=== PATIENT | female | born 1975 | race Caucasian/White ===

== ENCOUNTER 2016-12-14 14:42 | Emergency (ER) | payer OTHER ==
[~2016-12-14] VITALS: Ht 157.5 cm; Wt 55.8 kg
[2016-12-14] MEDS ORDERED: CITALOPRAM HBR20 MG PO (15:29)
--- NOTE | 2016-12-14 15:47 | ED ANIMAL BITE/WOUND CHECK ---
History of Present Illness General Chief Complaint: General Adult Stated Complaint: NEEDLE STICK Source: patient, old records Exam Limitations: no limitations Vital Signs & Intake/Output Vital Signs & Intake/Output ED Intake and Output 12/15 0000 12/14 1200 Intake Total 0 Output Total Balance 0 Intake, Oral 0 Patient 123 lb Weight Allergies Coded Allergies: No Known Allergies (09/18/15) Reconcile Medications Citalopram Hydrobromide (Citalopram HBr) 20 MG TABLET 1 TAB PO DAILY MENTAL HEALTH (Reported) Triage Note: PT STATES THAT SHE HAD JUST FINISHED GIVING A SHOT OF HEPARIN AND WENT TO [facility] STUCK HER L INDEX FINGER Triage Nurses Notes Reviewed? yes Onset: Abrupt Duration: hour(s): (1), constant Timing: single episode today Injury Environment: work Severity: mild Severity Numbers: 1 No Modifying Factors: none Associated Symptoms: DENIES : No Patient currently breastfeeds: No HPI: 41-year-old female presents to ER for evaluation status post sustaining a needlestick injury while upstairs at work. The patient states she was going to cap a heparin needle when she accidentally poked herself in the left second finger. She denies pain numbness tingling. She irrigated the wound immediately. She is otherwise without any complaints (DOMINGA FORD) Past History Travel History Traveled to [place] past 21 day No Medical History Any Pertinent Medical History? see below for history Neurological: NONE EENT: NONE Cardiovascular: NONE Respiratory: NONE Gastrointestinal: colitis Hepatic: NONE Renal: NONE Musculoskeletal: NONE Psychiatric: NONE Endocrine: NONE Blood Disorders: NONE Cancer(s): NONE INTEGRATION CONSULTANT/Reproductive: NONE Surgical History Surgical History: non-contributory Psychosocial History What is your primary language Moroccan Tobacco Use: Never used ETOH Use: denies use Illicit Drug Use: denies illicit drug use Family History Hx Contributory? No (DOMINGA FORD) Review of Systems Review of Systems Constitutional: Reports: see HPI. Comments Review of systems: See HPI, All other systems negative. Constitutional, no chills no fever, HEENT:no sore throat no congestion Cardiovascular: No chest pain , no palpitation Skin: no rashes, no change in skin Respiratory: No dyspnea no cough no sputum GI: No nausea no vomiting, no diarrhea, Muscle skeletal: No joint pain, no back pain, no neck pain, Neurologic: no headache Heme/endocrine: No bruising Immunology: No lymphadenopathy (DOMINGA FORD) Physical Exam Physical Exam General Appearance: well developed/nourished, no apparent distress, alert, awake Comments: Well-developed well-nourished patient in no apparent distress. HEENT: Atraumatic, extraocular motion intact Neck: Supple, FROM Back: FROM Respiratory: CNo respiratory distress. Patient speaking in full complete sentences. Extremities: full range of motion Neuro: awake, alert, and oriented to person, place and time. Skin: Warm & dry; superficial abrasion noted to the distal aspect the finger no active bleeding mild surrounding ecchymosis, full range motion of the finger Psych: Mood affect normal, normal memory normal judgment. (DOMINGA FORD) Progress Differential Diagnosis: abscess, cellulitis Plan of Care: Orders Procedure Date/time Status HIV EXPOSURE/NEEDLESTICK 12/14 154 Active HUMAN BETA HCG SCREEN 12/14 154 Active HEPT C ANTIBODY 12/14 1547 Active HEPT B SURFACE ANTIBODY 12/14 154 Active GAMMA GLUTAMYL TRANSFERASE 12/14 154 Active COMPREHENSIVE METABOLIC PANEL 12/14 1547 Active CBC WITHOUT DIFFERENTIAL 12/14 1547 Complete TRNSFRASE ASPART AMINO 12/14 1547 Active TRNSFRAS ALANINE AMINO 12/14 1547 Active Laboratory Tests 12/14/16 1455: Anion Gap 12, Estimated GFR > 60, BUN/Creatinine Ratio 17.1, Glucose 86, Calcium 10.0, Total Bilirubin 0.4, GGT 10 L, AST 22, ALT 31, Alkaline Phosphatase 103, Total Protein 7.6, Albumin 4.8, Globulin 2.8, Albumin/Globulin Ratio 1.7, Total Beta HCG NEGATIVE, CBC w Diff NO MAN DIFF REQ, RBC 4.16 L, MCV 97.7, MCH 33.3 H, RDW 12.3, MPV 8.3, Gran % 62.6, Lymphocytes % 27.3, Monocytes % 6.2, Eosinophils % 3.5, Basophils % 0.4, Absolute Granulocytes 3.7, Absolute Lymphocytes 1.6, Absolute Monocytes 0.4, Absolute Eosinophils 0.2, Absolute Basophils 0, PUBS MCHC 34.1, Hep Bs Antibody Pending, Hepatitis C Antibody Pending, HIV 1&2 Antibody NONREACTIVE Discussed with the patient needle stick protocol labs ordered the source patient is known and will be drawn I spoke with the patient regarding all of her lab results I discussed with her that the patient will require repeat blood test in 4-6 weeks advised return to ER anytime sooner than concerns return precautions regarding signs of infection to look out for were discussed she feels couple of plan.. 2009 I spoke with the patient relayed all of her information and lab results to her. (DOMINGA FORD) Departure Departure Time of Disposition: 1550 Disposition: HOME OR SELF CARE Condition: Stable Clinical Impression Primary Impression: Needle stick injury Referrals: MARIPOSA SAAB,IRMA Ontiveros (PCP/Family) Additional Instructions: Follow-up as discussed with occupational health as you may need repeat blood testing in 4-6 weeks. Observe for signs of infection: Redness warmth swelling discharge fever chills. Departure Forms: Customer Survey General Discharge Information (DOMINGA FORD) PA/ON SITE PROPERTY MANAGER Co-Sign Statement Statement: ED Attending supervision documentation- [] I saw and evaluated the patient. I have also reviewed all the pertinent lab results and diagnostic results. I agree with the findings and the plan of care as documented in the PA's/ON SITE PROPERTY MANAGER's documentation. [X] I have reviewed the ED Record and agree with the PA's/ON SITE PROPERTY MANAGER's documentation. [] Additions or exceptions (if any) to the PAs/ON SITE PROPERTY MANAGER's note and plan are summarized below: [] (OTILIO SAAB,CORINA)
[2016-12-14 15:58] VITALS: BP 112/74
[2016-12-14 16:09] LABS: ABSOLUTE BASOPHIL COUNT 0 /CUMM (0.0-0.2); ABSOLUTE EOSINOPHIL COUNT 0.2 /CUMM (0.0-0.7); ABSOLUTE GRANULOCYTE CT 3.7 /CUMM (1.4-6.5); ABSOLUTE LYMPH COUNT 1.6 /CUMM (1.2-3.4); ABSOLUTE MONOCYTE COUNT 0.4 /CUMM (0.10-0.60); BASOPHIL % 0.4 % (0.0-2.0); EOSINOPHIL % 3.5 % (0-5); GRANULOCYTE % 62.6 % (42.2-75.2); HEMATOCRIT 40.6 % (37-47); MEAN CORPUSCULAR HGB 33.3 PG (27.0-31.0); MEAN CORPUSCULAR HGB CONC 34.1 G/DL (33.0-37.0); MEAN CORPUSCULAR VOLUME 97.7 FL (81.0-99.0); MEAN PLATELET VOLUME 8.3 FL (7.4-10.4); PLATELET COUNT 262 /CUMM (130-400); RBC DISTRIBUTION WIDTH 12.3 % (11.5-14.5); RED BLOOD CELL CT 4.16 /CUMM (4.20-5.40); WHITE BLOOD CELL COUNT 5.9 /CUMM (4.8-10.8)
== END 2016-12-14 15:58 ==
LOC: ERH 14:42
PROVIDERS: Physician Assistant Medical
DX: S61.231A Puncture wound without foreign body of left index finger without damage to nail, initial encounter (principal); W46.1XXA Contact with contaminated hypodermic needle, initial encounter; Y93.89 Activity, other specified; Y92.239 Unspecified place in hospital as the place of occurrence of the external cause
CPT/HCPCS: 86803; 87389